=== PATIENT | male | born 1950 | race Caucasian/White ===

== ENCOUNTER 2021-07-21 02:17 | Day surgery (SDC) | payer OTHER, SELFPAY ==
[2021-07-08 16:12] VITALS: BMI 26.9
[2021-07-21 07:27] VITALS: BP 136/80; PULSE 65; RESP 15; TEMP 36.4; O2SAT 98
[2021-07-21 07:31] LABS: Glucose Point of Care 80 mg/dl (65-105)
[2021-07-21] MEDS: LACTATED RINGERS 1,000 ML 150 ML IV CONT (07:37)
--- NOTE | 2021-07-21 07:43 | P.CONGI_ITS ---
Assessment and Plan Assessment and plan (1) History of colon polyps: Code(s): Z86.010 - Personal history of colonic polyps Status: Acute Assessment and Plan: Patient has a personal history of colon polyps 2019 as well as family history of colon cancer in his mother. Plan is for surveillance colonoscopy now and intervals in the future typically 5 year intervals. Further recommendations will be given after endoscopy. (2) Family history of colon cancer in mother: Code(s): Z80.0 - Family history of malignant neoplasm of digestive organs Status: Acute GI Consult Note Consult date/time: 07/21/21 07:43 HPI: Sharan De Luna is a 70 year old male Presents for screening colonoscopy. Patient was found to have several colon polyps in 2019 that were adenomatous. Patient reports that his current weight appetite and bowel movements are normal. He denies abdominal pain. He has had no bleeding. Family history is significant his mother had colon cancer. Patient returns today for neoplasia screening colonoscopy. Review of Systems Review of Systems: All systems reviewed & are unremarkable except as noted in HPI and below PMFSH Social History Social History Years smoked: 40 Smoking status: Former smoker Living arrangements: alone Meds Home Medications and Allergies Home Medications Medication Instructions Recorded Confirmed Type atorvastatin 10 mg PO HS 07/08/21 07/21/21 History finasteride 5 mg PO DAILY 07/08/21 07/21/21 History lisinopril 2.5 mg PO DAILY 07/08/21 07/21/21 History metformin 500 mg PO DAILY 07/08/21 07/21/21 History Allergies Allergy/AdvReac Type Severity Reaction Status Date / Time No Known Allergies Allergy Verified 07/21/21 07:26 Vital Signs Vital Signs - 24 hr 07/21/21 07:27 Temperature 97.6 F Pulse Rate 65 Respiratory Rate 15 Blood Pressure 136/80 Pulse Oximetry 98 Exam Narrative: Physical exam reveals patient to be alert. Vital signs stable. HEENT exam is unremarkable. Patient is anicteric. Lungs are clear to auscultation and percussion. Heart is without murmur or extra sounds. Abdomi nal exam bowel sounds are present soft nontender with no organomegaly. Digital external rectal exam is normal.
--- NOTE | 2021-07-21 07:47 | WPDANESEPPF ---
Anes - Initial Pre Proc Eval Procedure: Operation Date: 07/21/21 08:30 Proposed Procedures p Screening Colonoscopy - Ayden Medina MD Date/Time: 07/21/21 07:47 Surgeon: Ayden Medina MD Pre Op Diagnosis: hx of colon polyps Patient Data Age: 70 Gender: M Height: 1.83 m Weight: 86.9 kg Last Vital Signs Temp 36.4 C 07/21/21 07:27 Pulse 65 07/21/21 07:27 Resp 15 07/21/21 07:27 BP 136/80 07/21/21 07:27 Pulse Ox 98 07/21/21 07:27 Allergies Allergy/AdvReac Type Severity Reaction Status Date / Time No Known Allergies Allergy Verified 07/21/21 07:26 Home Medications Medication Instructions Recorded Confirmed Type atorvastatin 10 mg PO HS 07/08/21 07/21/21 History finasteride 5 mg PO DAILY 07/08/21 07/21/21 History lisinopril 2.5 mg PO DAILY 07/08/21 07/21/21 History metformin 500 mg PO DAILY 07/08/21 07/21/21 History Laboratory Tests 07/21/21 07:30 POC Capillary Glucose 80 mg/dl mg/dl (65-105) Patient hx anesthesia problems: none Family hx anesthesia problems: none Results Review: All pre-operative results and documents have been reviewed as part of the pre-operative evaluation. [facility] Past Medical History Medical History Diabetes HTN (hypertension) Hyperlipidemia Smoker Surgical History Surgical History (Updated 07/21/21 @ 07:48 by Braeden Epstein MD) H/O colonoscopy Social History Social History (Updated 07/21/21 @ 07:49 by Braeden Epstein MD) Years smoked: 40 Smoking status: Current some day smoker Living arrangements: alone Anes - Eval Final PreProcedure Day of Procedure 07/21/21 07:47 Patient weight: overweight Heart: regular rate and rhythm Lungs: clear to auscultation Airway: Mallampati scale class II Neurological: alert and oriented Last oral intake: >/= 8 hours ASA classification: III Emergent: no Anesthetic plan: proceed Anesthesia type and monitoring: general GIVS and standard monitoring Results Review: All pre-operative results and documents have been reviewed as part of the pre-operative evaluation. Informed Consent: The patient's anesthetic plan and its attendant risks and benefits were discussed with the patient/family/POA. Questions were solicited and answers provided to the satisfaction of the patient/family/POA.
[2021-07-21 08:40] VITALS: BP 90/52; PULSE 59; RESP 13; O2SAT 98
[2021-07-21 08:50] VITALS: BP 105/63; PULSE 62; RESP 14; O2SAT 99
[2021-07-21 09:00] VITALS: BP 118/69; PULSE 59; RESP 14; O2SAT 96
== END 2021-07-21 09:10 | disposition home or self-care (01) ==
PROVIDERS: PCP Family Medicine; Visit Provider Internal Medicine Gastroenterology
PROC: 0DJD8ZZ Inspection of Lower Intestinal Tract, Via Natural or Artificial Opening Endoscopic (ICD-10-PCS; CPT 45378; principal; 2021-07-21 08:30)
DX: Z12.11 Encounter for screening for malignant neoplasm of colon (principal); K63.5 Polyp of colon; K57.30 Diverticulosis of large intestine without perforation or abscess without bleeding; K64.8 Other hemorrhoids; Z80.0 Family history of malignant neoplasm of digestive organs; Z79.84 Long term (current) use of oral hypoglycemic drugs; Z72.0 Tobacco use
CPT/HCPCS: 45385; 82948; 88305; J2704; J7120

== ENCOUNTER 2024-10-21 01:56 | Day surgery (SDC) | payer OTHER, SELFPAY ==
[2024-10-06 13:31] VITALS: BMI 24.5
--- OUTSIDE RECORDS SUMMARY | 2024-10-21 01:59 | XMS_ITS | Referral Summary ---
Author Organization [facility] [address] [facility] Address [address] [place] [address] Care Team Providers Care Art Tracer Name Role Phone Tanisha Isaac Primary Care Provider [phone] Allergies No known active allergies Medications finasteride (PROSCAR) 5 mg tablet Take 1 tablet (5 mg total) by mouth daily 0 Active cyanocobalamin (Vitamin B-12) 500 mcg tabletIndications: Prevention of Vitamin B12 Deficiency Take 1 tablet (500 mcg total) by mouth daily Active nexgrqzm-vjy-GQ-ly copen-lutein 0.4 mg-300 mcg- 250 mcg tabletIndications: Vitamin Deficiency Prevention 1 tablet Active blood-glucose meter kitIndications:Typ e 2 diabetes mellitus with hyperlipidemia (HCC) Use blood glucose meter to check blood sugar once daily. [facility] [employer] [employer]. 1 kit 5 Active blood glucose diagnostic (glucose blood) stripIndications:T ype 2 diabetes mellitus with hyperlipidemia (HCC) Use test strip to check blood sugar once daily. [facility] [employer]. 100 each 3 5 026 Active lancets miscIndications:Ty pe 2 diabetes mellitus with hyperlipidemia (HCC) Use lancet to check blood sugar once daily. [facility] [employer]. 100 each 3 5 Active atorvastatin (LIPITOR) 10 mg tabletIndications: Type 2 diabetes mellitus with hyperlipidemia (HCC) TAKE 1 TABLET BY MOUTH EVERY DAY 90 tablet 1 5 Active lisinopriL (PRINIVIL,ZESTRIL) 2.5 mg tabletIndications: Hypertension associated with diabetes (HCC) TAKE 1 TABLET BY MOUTH EVERY DAY 90 tablet 1 Active Active Problems Problem Noted Date Diagnosed Date Annual physical exam 06/15/2024 Assessment & Plan (06/15/2024 9:17 PM WEDDING COORDINATOR): Encouraged healthy lifestyle, good nutrition and exercise. Encouraged Calcium and Vitamin D and weight bearing exercise for bone health. Reviewed immunizations Reviewed age appropirate screenings. Colon cancer screening 06/15/2024 Assessment & Plan (06/15/2024 9:18 PM WEDDING COORDINATOR): Patient is due for colonoscopy. Refer back to [facility] Elevated MCV 12/04/2023 Assessment & Plan (12/09/2023 2:29 AM CDT): Elevated MCV. Check further labs BMI 28.0-28.9,adult 11/28/2022 Assessment & Plan (06/04/2024 9:52 AM WEDDING COORDINATOR): Weight/BMI is in healthy range. Continue healthy lifestyle to maintain. Assessment & Plan (12/09/2023 2:29 AM CDT): Weight/BMI is in healthy range. Continue healthy lifestyle to maintain. Assessment & Plan (07/15/2023 11:29 PM CDT): Weight/BMI is in healthy range. Continue healthy lifestyle to maintain. Assessment & Plan (11/28/2022 9:03 AM CDT): Weight/BMI is in healthy range. Continue healthy lifestyle to maintain. Family history of colon cancer 07/11/2020 Overview (07/11/2020): Mother and brother Assessment & Plan (11/28/2020 1:02 PM CDT): colonscopy - [facility] 06/2018--->2021 Assessment & Plan (07/11/2020 1:45 PM WEDDING COORDINATOR): Colonoscopy Due 07/2021 Hypertension associated with diabetes 05/20/2020 Assessment & Plan (06/15/2024 9:18 PM WEDDING COORDINATOR): Bp is stable/in acceptable range for any co-morbidities. Encouraged to limit sodium intake and exercise for weight control. Stressed importance of continued A1c control to minimize the joint terminal attack controller effects of diabetes. Bring accuchecks to office when instructed to do so. Check A1c about every 3-6 months. Take medication as prescribed. Get annual eye exam. Encouraged EDWARD/Statin if able to tolerate. Encouraged weight control and encouraged diabetic diet and exercise. Continue lisinopril 2.5 diabetes continues to be diet controlled Patient states his insurance has changed the preferred glucometer. New set up provided Assessment & Plan (12/09/2023 2:28 AM CDT): Bp is stable/in acceptable range for any co-morbidities. Encouraged to limit sodium intake and exercise for weight control. Stressed importance of continued A1c control to minimize the joint terminal attack controller effects of diabetes. Bring accuchecks to office when instructed to do so. Check A1c about every 3-6 months. Take medication as prescribed. Get annual eye exam. Encouraged EDWARD/Statin if able to tolerate. Encouraged weight control and encouraged diabetic diet and exercise. Continue lisinopril 2.5 and continue with tight diet control of his diabetes Assessment & Plan (07/15/2023 11:28 PM CDT): Bp is stable/in acceptable range for any co-morbidities. Encouraged to limit sodium intake and exercise for weight control. Continue lisinopril 2.5 Assessment & Plan (11/28/2022 11:58 AM CDT): Bp is stable/in acceptable range for any co-morbidities. Encouraged to limit sodium intake and exercise for weight control. Patient's A1c is 5.4. On metformin 500 mg daily. A1c is very tightly controlled discussed the risks and benefits of remaining on medication with this tight control. Decided to stop it. Follow-up in 4 months to recheck A1c for stability Assessment & Plan (06/03/2022 9:22 PM WEDDING COORDINATOR): Bp is stable/in acceptable range for any co-morbidities. Encouraged to limit sodium intake and exercise for weight control. Continue lisinopril 2.5 Assessment & Plan (12/04/2021 11:41 PM CDT): Bp is stable/in acceptable range for any co-morbidities. Encouraged to limit sodium intake and exercise for weight control. Continue with lisinopril Assessment & Plan (07/10/2021 10:01 PM WEDDING COORDINATOR): Bp is stable/in acceptable range for any co-morbidities. Encouraged to limit sodium intake and exercise for weight control. Continue lisinopril Assessment & Plan (11/28/2020 1:01 PM CDT): Bp is stable/in acceptable range for any co-morbidities. Encouraged to limit sodium intake and exercise for weight control. Continue lisinopril Assessment & Plan (07/11/2020 1:44 PM WEDDING COORDINATOR): Bp is stable/in acceptable range for any co-morbidities. Encouraged to limit sodium intake and exercise for weight control. Continue lisinopril Type 2 diabetes mellitus with hyperlipidemia Assessment & Plan (06/15/2024 9:17 PM WEDDING COORDINATOR): Encouraged patient to follow low fat/low chol diet like the Mediterranean diet. Increase good fats in the diet. Increase exercise. Monitor labs as needed. Continue atorvastatin 10 Assessment & Plan (12/09/2023 2:28 AM CDT): Encouraged patient to follow low fat/low chol diet like the Mediterranean diet. Increase good fats in the diet. Increase exercise. Monitor labs as needed. Continue atorvastatin 10 Assessment & Plan (07/15/2023 11:29 PM CDT): Stressed importance of continued A1c control to minimize the group home effects of diabetes. Bring accuchecks to office when instructed to do so. Check A1c about every 3-6 months. Take medication as prescribed. Get annual eye exam. Encouraged EDWARD/Statin if able to tolerate. Encouraged weight control and encouraged diabetic diet and exercise. Encouraged patient to follow low fat/low chol diet like the Mediterranean diet. Increase good fats in the diet. Increase exercise. Monitor labs as needed. Assessment & Plan (11/28/2022 11:58 AM CDT): Encouraged patient to follow low fat/low chol diet like the Mediterranean diet. Increase good fats in the diet. Increase exercise. Monitor labs as needed. Continue atorvastatin 10 Assessment & Plan (06/03/2022 9:23 PM WEDDING COORDINATOR): Encouraged patient to follow low fat/low chol diet like the Mediterranean diet. Increase good fats in the diet. Increase exercise. Monitor labs as needed. Continue statin Stressed importance of continued A1c control to minimize the group home effects of diabetes. Bring accuchecks to office when instructed to do so. Check A1c about every 3-6 months. Take medication as prescribed. Get annual eye exam. Encouraged EDWARD/Statin if able to tolerate. Encouraged weight control and encouraged diabetic diet and exercise. Continue metformin 500 daily. Last A1c is at goal. Continue to keep track labs Assessment & Plan (12/04/2021 11:41 PM CDT): Encouraged patient to follow low fat/low chol diet like the Mediterranean diet. Increase good fats in the diet. Increase exercise. Monitor labs as needed. Continue Lipitor 10 mg Assessment & Plan (07/10/2021 10:01 PM WEDDING COORDINATOR): Encouraged patient to follow fat/low chol diet like the Mediterranean diet. Increase good fats in the diet. Increase exercise. Monitor labs as needed. Continue statin Assessment & Plan (11/28/2020 1:01 PM CDT): Encouraged patient to follow fat/low chol diet like the Mediterranean diet. Increase good fats in the diet. Increase exercise. Monitor labs as needed. Continue atorvastatin Assessment & Plan (07/11/2020 1:45 PM WEDDING COORDINATOR): Encouraged patient to follow fat/low chol diet like the Mediterranean diet. Increase good fats in the diet. Increase exercise. Monitor labs as needed. Continue statin Benign prostatic hyperplasia without lower urinary tract symptoms 05/20/2020 Assessment & Plan (06/15/2024 9:17 PM WEDDING COORDINATOR): Continue per Dr. Ayala Continue finasteride 5 mg Assessment & Plan (12/09/2023 2:29 AM CDT): Continue per Dr. Mcqueen annually Continue finasteride. Assessment & Plan (07/15/2023 11:28 PM CDT): Continue per Urology Dr. Hector. Doing well on finasteride Assessment & Plan (11/28/2022 11:58 AM CDT): Continue per Urology Dr. Hector. Continue finasteride 5 mg Assessment & Plan (06/03/2022 9:22 PM WEDDING COORDINATOR): Continue per Urology. On finasteride 5 mg Assessment & Plan (07/10/2021 10:01 PM WEDDING COORDINATOR): Continue per Dr. Mcqueen, urologist continue finasteride 5 mg Assessment & Plan (07/11/2020 1:45 PM WEDDING COORDINATOR): Continue finasteride and following with Dr. 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 Chowdhury 10. Has the macular degeneration and states it is stable at this point Assessment & Plan (12/09/2023 2:28 AM CDT): Continue per Dr. Garcia for management of his macular degeneration Assessment & Plan (11/28/2022 11:58 AM CDT): Stressed the importance of following up with Ophthalmology Dr. Garcia. Last exam was in 2020. Discussed macular degeneration in the progression of the disease and the importance of regular follow-up. Assessment & Plan (06/03/2022 9:22 PM WEDDING COORDINATOR): Continue per Ophthalmology Dr. Garcia. Assessment & Plan (07/10/2021 10:01 PM WEDDING COORDINATOR): Continue per Dr. Garcia ophthalmology Assessment & Plan (11/28/2020 1:02 PM CDT): Continue per Opthamology Assessment & Plan (07/11/2020 1:44 PM WEDDING COORDINATOR): Continue per Ophthamology History of colon polyps 05/20/2020 Assessment & Plan (11/28/2020 1:02 PM CDT): colonscopy - [facility] 06/2018--->2021 Assessment & Plan (07/11/2020 1:45 PM WEDDING COORDINATOR): Colonoscopy due 07/2021 OA (osteoarthritis) 05/20/2020 Assessment & Plan (11/28/2020 1:03 PM CDT): NSAID prn Assessment & Plan (07/11/2020 1:45 PM WEDDING COORDINATOR): Continue with Nsaids prn Diverticulosis 05/20/2020 Resolved Problems Problem Noted Date Diagnosed Date Resolved Date Medicare annual wellness visit, subsequent 12/09/2023 06/15/2024 Assessment & Plan (12/09/2023 2:29 AM CDT): Encouraged healthy lifestyle, good nutrition and exercise. Encouraged Calcium and Vitamin D and weight bearing exercise for bone health. Reviewed immunizations. Reviewed age appropirate screenings. Medicare Wellness Documentation is completed within the chart Annual physical exam 07/15/2023 024 Assessment & Plan (07/15/2023 11:30 PM CDT): Encouraged healthy lifestyle, good nutrition and exercise. Encouraged Calcium and Vitamin D and weight bearing exercise for bone health. Reviewed immunizations Reviewed age appropirate screenings. Medicare annual wellness visit, subsequent 11/28/2022 07/15/2023 Assessment & Plan (11/28/2022 11:59 AM CDT): Encouraged healthy lifestyle, good nutrition and exercise. Encouraged Calcium and Vitamin D and weight bearing exercise for bone health. Reviewed immunizations. Reviewed age appropirate screenings. Medicare Wellness Documentation is completed within the chart Medicare annual wellness visit, subsequent 12/04/2021 05/23/2022 Assessment & Plan (12/04/2021 11:42 PM CDT): Encouraged healthy lifestyle, good nutrition and exercise. Encouraged Calcium and Vitamin D and weight bearing exercise for bone health. Reviewed immunizations. Reviewed age appropirate screenings. Medicare Wellness Documentation is completed within the chart Need for shingles vaccine 12/04/2021 Assessment & Plan (12/04/2021 11:42 PM CDT): Shingles vaccine updated in office today BMI 27.0-27.9,adult 06/21/2021 12/05/19 22 Assessment & Plan (06/21/2021 9:35 AM WEDDING COORDINATOR): Weight/BMI is in healthy range. Continue healthy lifestyle to maintain. Annual physical exam 06/21/2021 023 Assessment & Plan (06/03/2022 9:23 PM WEDDING COORDINATOR): Encouraged healthy lifestyle, good nutrition and exercise. Encouraged Calcium and Vitamin D and weight bearing exercise for bone health. Reviewed immunizations Reviewed age appropirate screenings. Assessment & Plan (07/10/2021 10:02 PM WEDDING COORDINATOR): Encouraged healthy lifestyle, good nutrition and exercise. Encouraged Calcium and Vitamin D and weight bearing exercise for bone health. Reviewed immunizations Reviewed age appropirate screenings. Need for vaccination with 13 -polyvalent pneumococcal conjugate vaccine 06/21/2021 Assessment & Plan (07/10/2021 10:02 PM WEDDING COORDINATOR): Thirteen updated in the office today Colon cancer screening 06/21/202105/23 Assessment & Plan (12/04/2021 11:42 PM CDT): Patient is due for follow-up colonoscopy. Last was in [address] Medina. He has a family history of colon cancer so due to repeat in 2021. Instructed patient he may call Dr. Medina's office inset the appointment is his convenience Assessment & Plan (07/10/2021 10:02 PM WEDDING COORDINATOR): Refer back to Dr. santacruz for is colonoscopy Fatigue 11/28/2020 11/28/2022 Assessment & Plan (06/03/2022 9:23 PM WEDDING COORDINATOR): Probably multifactorial. Check labs and followup to re-evaluate Assessment & Plan (07/10/2021 10:02 PM WEDDING COORDINATOR): Probably multifactorial. Check labs and followup to re-evaluate Assessment & Plan (11/28/2020 1:03 PM CDT): Probably multifactorial. Check labs and followup to re-evaluate Medicare annual wellness visit, initial 11/22/2020 06/21/2021 Assessment & Plan (11/22/2020 7:47 AM CDT): Encouraged healthy lifestyle, good nutrition and exercise. Encouraged Calcium and Vitamin D and weight bearing exercise for bone health. Reviewed immunizations. Reviewed age appropirate screenings. Medicare Wellness Documentation is completed within the chart BMI 26.0-26.9,adult 11/22/2020 11/29/19 Assessment & Plan (06/03/2022 9:22 PM WEDDING COORDINATOR): Weight/BMI is in healthy range. Continue healthy lifestyle to maintain. Assessment & Plan (12/04/2021 11:41 PM CDT): Weight/BMI is in healthy range. Continue healthy lifestyle to maintain. Assessment & Plan (11/22/2020 10:49 AM CDT): Weight/BMI is in healthy range. Continue healthy lifestyle to maintain. BMI 27.0-27.9,adult 05/20/2020 11/23/19 Assessment & Plan (05/20/2020 10:19 AM WEDDING COORDINATOR): Weight/BMI is in healthy range. Continue healthy lifestyle to maintain. Annual physical exam 05/20/2020 021 Assessment & Plan (07/11/2020 1:45 PM WEDDING COORDINATOR): Encouraged healthy lifestyle, good nutrition and exercise. Encouraged Calcium and Vitamin D and weight bearing exercise for bone health. Reviewed immunizations Reviewed age appropirate screenings. Other fatigue 05/20/2020 12/09/2023 Assessment & Plan (07/15/2023 11:29 PM CDT): Probably multifactorial. Check labs and followup to re-evaluate Assessment & Plan (07/11/2020 1:45 PM WEDDING COORDINATOR): Probably multifactorial. Check labs and followup to re-evaluate Immunizations Immunization Administration Dates Next Due Hep A, Adult 09/19/1999,03/08/1999 Influenza, Quadrivalent, Hig h Dose, Preservative Free, Intrr 03/08/2023,02/07/2022,02/10/2021 Influenza, Trivalent, High D ose, Split, Preservative Free, Intramuscular 02/11/2024 Influenza, Unspecified 06/07/2022(Deferr ed: Patient Refused),06/07/2021(Deferred: Patient Refused),05/07/2021(Deferred: Patient Refused),03/08/2020 Pfizer SARS-CoV-2 Monovalent Vaccination (12+ Yrs) PURPLE 04/23/2021 Pneumococcal Conjugate PCV 13 06/21/2021 Pneumococcal Polysaccharide PPV23 03/08/2020 Td, adsorbed 11/23/1993 ZOSTER Recombinant 11/24/2021,11/24/2020 Social History Tobacco Use Types Packs/Day Years Used Date Smoking Tobacco: Never Smokeless Tobacco: Never Tobacco Cessation:Counseling Given: Not Answered Alcohol Use Standard Drinks/Week Comments Yes 0 (1 standard drink = 0.6 oz pur e alcohol) Socially AUDIT-C Answer Date Recorded Q1: How often do you have a drink containing alcohol? Never 06/04/2024 Q2: How many drinks containi ng alcohol do you have on a typical day when you are drinking? Patient does not drink Q3: How often do you have si x or more drinks on one occasion? Never 06/04/2024 PHQ-2 Answer Date Recorded PHQ-2 Total Score (If total score is 3 or more points, staff should administer the PHQ-9) 0 06/04/2024 Sex and Gender Information Value Date Recorded Sex Assigned at Not on file Legal Sex Male 12:01 PM WEDDING COORDINATOR Gender Identity Not on file Sexual Orientation Not on file Last Filed Vital Signs Vital Sign Reading Time Taken Comments Blood Pressure 130/82 06/04/2024 9:50 AM WEDDING COORDINATOR Pulse 55 06/04/2024 9:50 AM WEDDING COORDINATOR Temperature 36.7 C (98 F) 06/04/2024 9:50 AM WEDDING COORDINATOR Respiratory Rate 16 05/24/2022 9:04 AM WEDDING COORDINATOR Oxygen Saturation 99% 06/04/2024 9:50 AM WEDDING COORDINATOR Inhaled Oxygen Concentration - - Weight 86.9 kg (191 lb 9.6 oz) 06/04/2024 9:50 A M WEDDING COORDINATOR Height 175.3 cm (5' 9) 06/04/2024 9:50 AM WEDDING COORDINATOR Body Mass Index 28.29 06/04/2024 9:50 AM WEDDING COORDINATOR Plan of Treatment Not on file Procedures Procedure Name Priority Date/Time Associated Diagnosis Comments COMPREHENSIVE METABOLIC PANEL Routine 05/19/2024 7:18 AM WEDDING COORDINATOR Type 2 diabetes mellitus without complication, without long-term current use of insulin (HCC) HEMOGLOBIN A1C Routine 05/19/2024 7:18 AM WEDDING COORDINATOR Type 2 diabetes mellitus without complication, without long-term current use of insulin (HCC) LIPID PANEL Routine 05/19/2024 7:18 AM WEDDING COORDINATOR Type 2 diabetes mellitus without complication, without long-term current use of insulin (HCC) ALBUMIN CREATININE RATIO, URINE Routine 05/19/2024 7:18 AM WEDDING COORDINATOR Type 2 diabetes mellitus without complication, without long-term current use of insulin (HCC) DIABETES EYE EXAM Routine 02/29/2024 11:27 AM CDT COLONOSCOPY Routine 07/21/2021 from Last 3 Months or Most Recently Relevant to Health Maintenance Results * Albumin Creatinine Ratio, Urine (05/19/2024 7:18 AM WEDDING COORDINATOR) Creatinine, ur 93 20 - 320 mg/dL [facility] Microalbumin, ur 0.6 See Note: mg/dL [facility] Comment: Reference Range: Reference Range Not established Microalbumin/creat ratio 6 <30 mg/g creat [facility] Comment: The ADA defines abnormalities in albumin excretion as follows: Albuminuria Category Result (mg/g creatinine) Normal to Mildly increased <30 Moderately increased 30-299 Severely increased > OR = 300 The ADA recommends that at least two of three specimens collected within a 3-6 month period be abnormal before considering a patient to be within a diagnostic category. Urine 05/19/2024 7:18 AM WEDDING COORDINATOR 05/19/2024 7:20 AM WEDDING COORDINATOR Narrative [facility] - 05/20/2024 5:42 AM WEDDING COORDINATOR FASTING:YES FASTING: YES Tanisha ANDRADE LAB URINE ORDERABLES Final Result [facility] [address] [place] [address] * (ABNORMAL) Hemoglobin A1c (05/19/2024 7:18 AM WEDDING COORDINATOR) Hgb A1C 6.0(H) <5.7 % of total Hgb [facility] Comment: For someone without known diabetes, a hemoglobin A1c value between 5.7% and 6.4% is consistent with prediabetes and should be confirmed with a follow-up test. For someone with known diabetes, a value <7% indicates that their diabetes is well controlled. A1c targets should be individualized based on duration of diabetes, age, comorbid conditions, and other considerations. This assay result is consistent with an increased risk of diabetes. Currently, no consensus exists regarding use of hemoglobin A1c for diagnosis of diabetes for children. Blood 05/19/2024 7:18 AM WEDDING COORDINATOR 05/19/2024 7:20 AM WEDDING COORDINATOR Narrative [facility] - 05/20/2024 5:42 AM WEDDING COORDINATOR FASTING:YES FASTING: YES Tanisha ANDRADE LAB BLOOD ORDERABLES Final Result [facility] [address] [place] [address] * Lipid panel (05/19/2024 7:18 AM WEDDING COORDINATOR) [facility] Cholesterol 165 <200 mg/dL [facility] HDL 50 > OR = 40 mg/dL [facility] Triglycerides 103 <150 mg/dL [facility] LDL 95 mg/dL (calc) [facility] Comment: Reference range: <100 Desirable range <100 mg/dL for primary prevention; <70 mg/dL for patients with CHD or diabetic patients with > or = 2 CHD risk factors. LDL-C is now calculated using the Stuart-Campbell calculation, which is a validated novel method providing better accuracy than the Friedewald equation in the estimation of LDL-C. Stuart VALDES et al. HERB. 2013;310(19): 6390-9109 (http://education.[employer]/faq/YJT929) Chol/HDL ratio 3.3 <5.0 (calc) [facility] Non-HDL, (LDL+VLDL) 115 <130 mg/dL (calc) [facility] Comment: For patients with diabetes plus 1 major ASCVD risk factor, treating to a non-HDL-C goal of <100 mg/dL (LDL-C of <70 mg/dL) is considered a therapeutic option. Blood 05/19/2024 7:18 AM WEDDING COORDINATOR 05/19/2024 7:20 AM WEDDING COORDINATOR Narrative [facility] - 05/20/2024 5:42 AM WEDDING COORDINATOR FASTING:YES FASTING: YES Tanisha ANDRADE LAB BLOOD ORDERABLES Final Result [facility] [address] [place] [address] * Comprehensive metabolic panel (05/19/2024 7:18 AM WEDDING COORDINATOR) [facility] Glucose 87 65 - 99 mg/dL [facility] Comment: Fasting reference interval BUN 16 7 - 25 mg/dL [facility] Creatinine 0.88 0.70 - 1.28 mg/dL [facility] eGFR 91 > OR = 60 mL/min/1.7 3m2 [facility] BUN/creat ratio SEE NOTE: 6 - 22 (calc) [facility] Comment: Not Reported: BUN and Creatinine are within reference range. Sodium 140 135 - 146 mmol/L [facility] Potassium, pl 4.6 3.5 - 5.3 mmol/L [facility] Chloride 105 98 - 110 mmol/L [facility] CO2 28 20 - 32 mmol/L [facility] Calcium 9.4 8.6 - 10.3 mg/dL [facility] Protein, sr 7.2 6.1 - 8.1 g/dL [facility] Albumin 4.6 3.6 - 5.1 g/dL [facility] GLOBULIN 2.6 1.9 - 3.7 g/dL (calc) [facility] Alb/glob ratio 1.8 1.0 - 2.5 (calc) [facility] Bilirubin, total 0.5 0.2 - 1.2 mg/dL [facility] Alk phos 48 35 - 144 U/L [facility] AST 25 10 - 35 U/L [facility] ALT (SGPT) 14 9 - 46 U/L [facility] Blood 05/19/2024 7:18 AM WEDDING COORDINATOR 05/19/2024 7:20 AM WEDDING COORDINATOR Narrative [facility] - 05/20/2024 5:42 AM WEDDING COORDINATOR FASTING:YES FASTING: YES Tanisha ANDRADE LAB BLOOD ORDERABLES Final Result [facility] [address] [place] [address] * DIABETES EYE EXAM (02/29/2024 11:27 AM CDT) SCRIBED DIABETIC DILATED EYE EXAM Normal Historical Provider MD HEALTH MAINTENANCE Edited Result - Final * Colonoscopy (07/21/2021) Anatomical Region Laterality Modality Other Historical Provider ENDOSCOPY PROCEDURES Michelle l Result from Last 3 Months or Most Recently Relevant to Health Maintenance Insurance HEALTHCARE Member Subscriber Plan / Payer (Ef fective 2017-Present) Name:Sharan De Luna Relation to Subscriber:Self Name:Sharan De Luna Payer ID:[id number] (NAIC) Type:MEDICARE RISK OTHER Address: [place] [id number] Care Teams Art Tracer Relationship Specialty Start Date End Date Tanisha Isaac PA [address] [facility] [address] [place] [address] PCP - General Internal Medicine 04/06/20
--- OUTSIDE RECORDS SUMMARY | 2024-10-21 01:59 | XMS_ITS | Continuity of Care Document ---
Author Organization [facility] Address [address] [place] [address] [place] [address] Phone Care Team Providers Care Energy Administrator Name Role Phone Tay Jensen DO Unavailable Unavailable Advance Directives Directive Yes / No Effective Date File Name No Information Encounters Encounter Description Practice Location Reason(s) For Visit Diagnoses Date Provider Providers Copied on Encounter [facility], [address], [place], [place], [id number], [place] tel:[phone] [facility] No Information Mikey Boone. [address] [facility], [place], [address], [place]. tel:[phone] Family History Family Member Type Diagnosis Age At Onset No Information Payers Payer name Insurance type Covered constitution party ID Authoriza tion(s) No Information Social History Type Description Quantity Date Captured Comments Sex Male Smoking Status No Information Chief Complaint And Reason For Visit No Information Reason For Referral Reason For Referral No Information History Of Present Illness Encounter Date Complaint History Of Prese nt Illness No Information Functional Status Date Functional Assessmen t No Information Instructions Date Instruction Additional Infor mation No Information Assessments Type Assessment Date No Information Patient Care Teams Name Effective Dates (start - stop) Status Members No Information
--- OUTSIDE RECORDS SUMMARY | 2024-10-21 01:59 | XMS_ITS | Clinical Summary ---
Author Organization [facility] [address] [facility] Address [address] [place] [address] Care Team Providers Care Finance Officer Name Role Phone Tanisha Isaac Primary Care Provider [phone] Allergies No known active allergies Medications finasteride (PROSCAR) 5 mg tablet Take 1 tablet (5 mg total) by mouth daily 0 Active cyanocobalamin (Vitamin B-12) 500 mcg tabletIndications: Prevention of Vitamin B12 Deficiency Take 1 tablet (500 mcg total) by mouth daily Active smsswzhm-avh-XD-ly copen-lutein 0.4 mg-300 mcg- 250 mcg tabletIndications: [...] 06/15/2024 Assessment & Plan (06/15/2024 9:17 PM POKER SUPERVISOR): Encouraged healthy lifestyle, good nutrition and exercise. Encouraged Calcium and Vitamin D and weight bearing exercise for bone health. Reviewed immunizations Reviewed age appropirate screenings. Colon cancer screening 06/15/2024 Assessment & Plan (06/15/2024 9:18 PM POKER SUPERVISOR): Patient is due for colonoscopy. Refer back to [facility] Elevated MCV 12/04/2023 Assessment & Plan (12/09/2023 2:29 AM CDT): Elevated MCV. Check further labs BMI 28.0-28.9,adult 11/28/2022 Assessment & Plan (06/04/2024 9:52 AM POKER SUPERVISOR): Weight/BMI is in healthy range. Continue healthy [...] 06/2018--->2021 Assessment & Plan (07/11/2020 1:45 PM POKER SUPERVISOR): Colonoscopy Due 07/2021 Hypertension associated with diabetes 05/20/2020 Assessment & Plan (06/15/2024 9:18 PM POKER SUPERVISOR): Bp is stable/in acceptable range for any co-morbidities. Encouraged to limit sodium intake and exercise for weight control. Stressed importance of continued A1c control to minimize the watermelon harvesting supervisor effects of diabetes. Bring accuchecks to office [...] of continued A1c control to minimize the watermelon harvesting supervisor effects of diabetes. Bring accuchecks to office [...] stability Assessment & Plan (06/03/2022 9:22 PM POKER SUPERVISOR): Bp is stable/in acceptable range for any co-morbidities. Encouraged to limit sodium intake and exercise for weight control. Continue lisinopril 2.5 Assessment & Plan (12/04/2021 11:41 PM CDT): Bp is stable/in acceptable range for any co-morbidities. Encouraged to limit sodium intake and exercise for weight control. Continue with lisinopril Assessment & Plan (07/10/2021 10:01 PM POKER SUPERVISOR): Bp is stable/in acceptable range for any co-morbidities. Encouraged to limit sodium intake and exercise for weight control. Continue lisinopril Assessment & Plan (11/28/2020 1:01 PM CDT): Bp is stable/in acceptable range for any co-morbidities. Encouraged to limit sodium intake and exercise for weight control. Continue lisinopril Assessment & Plan (07/11/2020 1:44 PM POKER SUPERVISOR): Bp is stable/in acceptable range for any co-morbidities. Encouraged to limit sodium intake and exercise for weight control. Continue lisinopril Type 2 diabetes mellitus with hyperlipidemia Assessment & Plan (06/15/2024 9:17 PM POKER SUPERVISOR): Encouraged patient to follow low fat/low chol [...] of continued A1c control to minimize the fpc effects of diabetes. Bring accuchecks to office [...] 10 Assessment & Plan (06/03/2022 9:23 PM POKER SUPERVISOR): Encouraged patient to follow low fat/low chol diet like the Mediterranean diet. Increase good fats in the diet. Increase exercise. Monitor labs as needed. Continue statin Stressed importance of continued A1c control to minimize the fpc effects of diabetes. Bring accuchecks to office [...] mg Assessment & Plan (07/10/2021 10:01 PM POKER SUPERVISOR): Encouraged patient to follow fat/low chol diet like the Mediterranean diet. Increase good fats in the diet. Increase exercise. Monitor labs as needed. Continue statin Assessment & Plan (11/28/2020 1:01 PM CDT): Encouraged patient to follow fat/low chol diet like the Mediterranean diet. Increase good fats in the diet. Increase exercise. Monitor labs as needed. Continue atorvastatin Assessment & Plan (07/11/2020 1:45 PM POKER SUPERVISOR): Encouraged patient to follow fat/low chol diet like the Mediterranean diet. Increase good fats in the diet. Increase exercise. Monitor labs as needed. Continue statin Benign prostatic hyperplasia without lower urinary tract symptoms 05/20/2020 Assessment & Plan (06/15/2024 9:17 PM POKER SUPERVISOR): Continue per Dr. Ayala Continue finasteride 5 mg Assessment & Plan (12/09/2023 2:29 AM CDT): Continue per Dr. Mcqueen annually Continue finasteride. Assessment & Plan (07/15/2023 11:28 PM CDT): Continue per Urology Dr. Hector. Doing well on finasteride Assessment & Plan (11/28/2022 11:58 AM CDT): Continue per Urology Dr. Hector. Continue finasteride 5 mg Assessment & Plan (06/03/2022 9:22 PM POKER SUPERVISOR): Continue per Urology. On finasteride 5 mg Assessment & Plan (07/10/2021 10:01 PM POKER SUPERVISOR): Continue per Dr. Mcqueen, urologist continue finasteride 5 mg Assessment & Plan (07/11/2020 1:45 PM POKER SUPERVISOR): Continue finasteride and following with Dr. 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 Chowdhury 10. Has the [...] follow-up. Assessment & Plan (06/03/2022 9:22 PM POKER SUPERVISOR): Continue per Ophthalmology Dr. Garcia. Assessment & Plan (07/10/2021 10:01 PM POKER SUPERVISOR): Continue per Dr. Garcia ophthalmology Assessment & Plan (11/28/2020 1:02 PM CDT): Continue per Opthamology Assessment & Plan (07/11/2020 1:44 PM POKER SUPERVISOR): Continue per Ophthamology History of colon polyps 05/20/2020 Assessment & Plan (11/28/2020 1:02 PM CDT): colonscopy - [facility] 06/2018--->2021 Assessment & Plan (07/11/2020 1:45 PM POKER SUPERVISOR): Colonoscopy due 07/2021 OA (osteoarthritis) 05/20/2020 Assessment & Plan (11/28/2020 1:03 PM CDT): NSAID prn Assessment & Plan (07/11/2020 1:45 PM POKER SUPERVISOR): Continue with Nsaids prn Diverticulosis 05/20/2020 Resolved [...] 22 Assessment & Plan (06/21/2021 9:35 AM POKER SUPERVISOR): Weight/BMI is in healthy range. Continue healthy lifestyle to maintain. Annual physical exam 06/21/2021 023 Assessment & Plan (06/03/2022 9:23 PM POKER SUPERVISOR): Encouraged healthy lifestyle, good nutrition and exercise. Encouraged Calcium and Vitamin D and weight bearing exercise for bone health. Reviewed immunizations Reviewed age appropirate screenings. Assessment & Plan (07/10/2021 10:02 PM POKER SUPERVISOR): Encouraged healthy lifestyle, good nutrition and exercise. Encouraged Calcium and Vitamin D and weight bearing exercise for bone health. Reviewed immunizations Reviewed age appropirate screenings. Need for vaccination with 13 -polyvalent pneumococcal conjugate vaccine 06/21/2021 Assessment & Plan (07/10/2021 10:02 PM POKER SUPERVISOR): Thirteen updated in the office today Colon [...] convenience Assessment & Plan (07/10/2021 10:02 PM POKER SUPERVISOR): Refer back to Dr. santacruz for is colonoscopy Fatigue 11/28/2020 11/28/2022 Assessment & Plan (06/03/2022 9:23 PM POKER SUPERVISOR): Probably multifactorial. Check labs and followup to re-evaluate Assessment & Plan (07/10/2021 10:02 PM POKER SUPERVISOR): Probably multifactorial. Check labs and followup to [...] 11/29/19 Assessment & Plan (06/03/2022 9:22 PM POKER SUPERVISOR): Weight/BMI is in healthy range. Continue healthy lifestyle to maintain. Assessment & Plan (12/04/2021 11:41 PM CDT): Weight/BMI is in healthy range. Continue healthy lifestyle to maintain. Assessment & Plan (11/22/2020 10:49 AM CDT): Weight/BMI is in healthy range. Continue healthy lifestyle to maintain. BMI 27.0-27.9,adult 05/20/2020 11/23/19 Assessment & Plan (05/20/2020 10:19 AM POKER SUPERVISOR): Weight/BMI is in healthy range. Continue healthy lifestyle to maintain. Annual physical exam 05/20/2020 021 Assessment & Plan (07/11/2020 1:45 PM POKER SUPERVISOR): Encouraged healthy lifestyle, good nutrition and exercise. Encouraged Calcium and Vitamin D and weight bearing exercise for bone health. Reviewed immunizations Reviewed age appropirate screenings. Other fatigue 05/20/2020 12/09/2023 Assessment & Plan (07/15/2023 11:29 PM CDT): Probably multifactorial. Check labs and followup to re-evaluate Assessment & Plan (07/11/2020 1:45 PM POKER SUPERVISOR): Probably multifactorial. Check labs and followup to [...] 03/08/2020 Td, adsorbed 11/23/1993 ZOSTER Recombinant 11/24/2021,11/24/2020 Surgical History Surgery Date Site/Laterality Comments PANCREAS SURGERY 05/07/2016 - 05/06/2017 Dr. Quiñonez done at [facility] History Medical History Date Comments Hyperlipidemia Diabetes mellitus (HCC) Family History Medical History Relation Name Comments Diabetes Father Hypertension Father Colon cancer Mother Diabetes Mother Diabetes Sister Relation Name Status Comments Father Mother Sister Social History Tobacco Use Types Packs/Day Years [...] on file Legal Sex Male 12:01 PM POKER SUPERVISOR Gender Identity Not on file Sexual Orientation Not on file Obstetrics History Last Filed Vital Signs Vital Sign Reading Time Taken Comments Blood Pressure 130/82 06/04/2024 9:50 AM POKER SUPERVISOR Pulse 55 06/04/2024 9:50 AM POKER SUPERVISOR Temperature 36.7 C (98 F) 06/04/2024 9:50 AM POKER SUPERVISOR Respiratory Rate 16 05/24/2022 9:04 AM POKER SUPERVISOR Oxygen Saturation 99% 06/04/2024 9:50 AM POKER SUPERVISOR Inhaled Oxygen Concentration - - Weight 86.9 kg (191 lb 9.6 oz) 06/04/2024 9:50 A M POKER SUPERVISOR Height 175.3 cm (5' 9) 06/04/2024 9:50 AM POKER SUPERVISOR Body Mass Index 28.29 06/04/2024 9:50 AM POKER SUPERVISOR Plan of Treatment Health Maintenance Due Date Last Done Comments Hepatitis C Screening 1950 Foot Exam 1950 Hepatitis B Screening 10/08/1969 DTaP/Tdap/Td Vaccine (1 - Tdap) 11/24/1993 4 Covid-19 Vaccine (2023-2 5 season) 2024 04/23/2021, 07/19/2020, 06/28/2020 Colon Cancer Screening-Colonoscopy 07/21/2024 07/21/2021, 06/14/2018, 06/13/2018 Hemoglobin A1C 11/16/2024 05/19/2024, 11/04, 03/21/2023, Additional history exists Dilated Eye Exam 02/28/2025 02/29/2024, , 12/19/2022, Additional history exists Albumin Creatinine Ratio, Urine 05/19/2025 05/19/2024, 11/20/2023, 11/21/2022, Additional history exists Lipid Panel 05/19/2025 05/19/2024, 11/04, 11/21/2022, Additional history exists eGFR 05/19/2025 05/19/2024, 11/04, 11/21/2022, Additional history exists Depression Screening 06/04/2025 06/04/2024, 12/04/2023, 07/02/2023, Additional history exists Fall Risk Assessment 06/04/2025 06/04/2024, 12/04/2023, 07/02/2023, Additional history exists Well Visit 65+ 06/04/2025 06/04/2024, 11/06, 07/02/2023, Additional history exists Pneumococcal vaccine 65+ Completed 06/21/2021, 1106/2019 Zoster Vaccine Completed 11/24/2021, 11/24/2020 Influenza Vaccine Completed 02/11/2024, , 02/07/2022, Additional history exists Procedures Procedure Name Priority Date/Time Associated Diagnosis Comments COMPREHENSIVE METABOLIC PANEL Routine 05/19/2024 7:18 AM POKER SUPERVISOR Type 2 diabetes mellitus without complication, without long-term current use of insulin (HCC) HEMOGLOBIN A1C Routine 05/19/2024 7:18 AM POKER SUPERVISOR Type 2 diabetes mellitus without complication, without long-term current use of insulin (HCC) LIPID PANEL Routine 05/19/2024 7:18 AM POKER SUPERVISOR Type 2 diabetes mellitus without complication, without long-term current use of insulin (HCC) ALBUMIN CREATININE RATIO, URINE Routine 05/19/2024 7:18 AM POKER SUPERVISOR Type 2 diabetes mellitus without complication, without long-term current use of insulin (HCC) HM DIABETES EYE EXAM Routine 02/29/2024 11:27 AM CDT COLONOSCOPY Routine 07/21/2021 from Last 3 Months or Most Recently Relevant to Health Maintenance Results * Albumin Creatinine Ratio, Urine (05/19/2024 7:18 AM POKER SUPERVISOR) Creatinine, ur 93 20 - 320 mg/dL [...] a diagnostic category. Urine 05/19/2024 7:18 AM POKER SUPERVISOR 05/19/2024 7:20 AM POKER SUPERVISOR Narrative [facility] - 05/20/2024 5:42 AM POKER SUPERVISOR FASTING:YES FASTING: YES Tanisha ANDRADE LAB URINE ORDERABLES Final Result [facility] [address] [facility] [place], [place] [address] * (ABNORMAL) Hemoglobin A1c (05/19/2024 7:18 AM POKER SUPERVISOR) Hgb A1C 6.0(H) <5.7 % of total [...] diabetes for children. Blood 05/19/2024 7:18 AM POKER SUPERVISOR 05/19/2024 7:20 AM POKER SUPERVISOR Narrative [facility] - 05/20/2024 5:42 AM POKER SUPERVISOR FASTING:YES FASTING: YES Tanisha ANDRADE LAB BLOOD ORDERABLES Final Result [facility] [address] [place] [address] * Lipid panel (05/19/2024 7:18 AM POKER SUPERVISOR) [facility] Cholesterol 165 <200 mg/dL NavidogLoal Guillen HDL 50 > OR = 40 mg/dL [facility]idogLola Guillen Triglycerides 103 <150 mg/dL Padmini ImpactGamesLola Guillen LDL 95 mg/dL (calc) NavidogLola Guillen Comment: Reference range: <100 Desirable range <100 mg/dL for primary prevention; <70 mg/dL for patients with CHD or diabetic patients with > or = 2 CHD risk factors. LDL-C is now calculated using the Stuart-Adrian calculation, which is a validated novel method providing better accuracy than the Friedewald equation in the estimation of LDL-C. Stuart VALDES et al. HERB. 2013;310(19): 3217-6750 (http://education.Mediaspectrum.Huoli/faq/VHT968) Chol/HDL ratio 3.3 <5.0 (calc) Padmini [facility] Guillen Non-HDL, (LDL+VLDL) 115 <130 mg/dL (calc) FlippsRosario Guillen Comment: For patients with diabetes plus 1 major ASCVD risk factor, treating to a non-HDL-C goal of <100 mg/dL (LDL-C of <70 mg/dL) is considered a therapeutic option. Blood 05/19/2024 7:18 AM POKER SUPERVISOR 05/19/2024 7:20 AM POKER SUPERVISOR Narrative [facility] - 05/20/2024 5:42 AM POKER SUPERVISOR FASTING:YES FASTING: YES Tanisha ANDRADE LAB BLOOD ORDERABLES Final Result PADMINI Guillen [address] [place] [address] * Comprehensive metabolic panel (05/19/2024 7:18 AM POKER SUPERVISOR) [facility] Glucose 87 65 - 99 mg/dL Padmini Beaulieu-Lola Guillen Comment: Fasting reference interval BUN 16 7 - 25 mg/dL Padmini Beaulieu-Lola Guillen Creatinine 0.88 0.70 - 1.28 mg/dL [facility] Guillen eGFR 91 > OR = 60 mL/min/1.7 3m2 [facility] BUN/creat ratio SEE NOTE: 6 (calc) [facility] Gu[facility] Comment: Not Reported: BUN and Creatinine are within reference range. Sodium 140 135 - 146 mmol/L [facility] Potassium, pl 4.6 3.5 - 5.3 mmol/L [facility] Chloride 105 98 - 110 mmol/L [facility] CO2 28 20 - 32 mmol/L [facility] Calcium 9.4 8.6 - 10.3 mg/dL [facility] Protein, sr 7.2 6.1 - 8.1 g/dL [facility] Albumin 4.6 3.6 - 5.1 g/dL [facility] GLOBULIN 2.6 1.9 - 3.7 g/dL (calc) [facility] Alb/glob ratio 1.8 1.0 - 2.5 (calc) [facility] Bilirubin, total 0.5 0.2 - 1.2 mg/dL [facility] Alk phos 48 35 - 144 U/L [facility] AST 25 10 - 35 U/L [facility] ALT (SGPT) 14 9 - 46 U/L [facility] Blood 05/19/2024 7:18 AM POKER SUPERVISOR 05/19/2024 7:20 AM POKER SUPERVISOR Narrative [facility] - 05/20/2024 5:42 AM POKER SUPERVISOR FASTING:YES FASTING: YES Tanisha ANDRADE LAB BLOOD ORDERABLES Final Result [email or web address] [address] [place] [address] * DIABETES EYE EXAM (02/29/2024 11:27 AM CDT) SCRIBED DIABETIC DILATED EYE EXAM Normal Historical Provider HEALTH MAINTENANCE Edited Result - Final * Colonoscopy (07/21/2021) Anatomical Region Laterality Modality Other Historical Provider ENDOSCOPY PROCEDURES Michelle l Result from Last 3 Months or Most Recently Relevant to Health Maintenance Insurance [facility] [address] [facility] Care Teams Finance Officer Relationship Specialty Start Date End Date Tanisha Isaac PA [address] [facility] [address] [place] [address] PCP - General Internal Medicine 04/06/20
[2024-10-21 07:53] VITALS: BP 138/67; PULSE 57; RESP 18; TEMP 36.6; O2SAT 99
[2024-10-21] MEDS: LACTATED RINGERS 1,000 ML 150 ML IV CONT (07:59)
--- NOTE | 2024-10-21 08:08 | P.PNAN_ITS ---
Anes - Initial Pre Proc Eval Procedure: Operation Date: 10/21/24 09:00 Proposed Procedures p Screening Colonoscopy - Janes Reddy MD Date/Time: 10/21/24 08:08 Surgeon: Janes Reddy MD Pre Op Diagnosis: Encounter for screening for malignant neoplasm of Patient Data Age: 74 Gender: M Height: 1.83 m Weight: 83.2 kg Last Vital Signs Temp 36.6 C 10/21/24 07:53 Pulse 57 L 10/21/24 07:53 Resp 18 10/21/24 07:53 BP 138/67 10/21/24 07:53 Pulse Ox 99 10/21/24 07:53 O2 Del Method Room Air 10/21/24 07:53 Allergies Allergy/AdvReac Type Severity Reaction Status Date / Time No Known Allergies Allergy Verified 10/21/24 07:51 Home Medications ?Medication ?Instructions ?Recorded ?Confirmed ?Type atorvastatin 10 mg tablet 10 mg PO HS 07/08/21 10/21/24 History finasteride 5 mg tablet 5 mg PO DAILY 07/08/21 10/21/24 History lisinopril 2.5 mg tablet 2.5 mg PO DAILY 07/08/21 10/21/24 History mecobalamin (vitamin B12) 5,000 5,000 mcg PO DAILY 10/06/24 10/21/24 History mcg chewable tablet multivitamin 1 tablet PO DAILY 10/06/24 10/21/24 History Patient hx anesthesia problems: none Family hx anesthesia problems: none Results Review: All pre-operative results and documents have been reviewed as part of the pre- operative evaluation. COUNT INCLUDES THE [facility] Past Medical History Medical History Smoker Diabetes HTN (hypertension) Hyperlipidemia Surgical History Surgical History H/O colonoscopy Social History Social History Smoking packs per day: 0.5 Smoking cigarettes per day: 10.0 Years smoked: 10 Smoking pack-years: 5.00 Smoking status: Former smoker Tobacco type: cigarettes Alcohol intake: never Substance use: never Substance use type: does not use Living arrangements: alone Spiritual care concerns: No Anes - Eval Final PreProcedure Day of Procedure 10/21/24 08:08 Patient weight: normal Heart: regular rate and rhythm Lungs: decreased breath sounds Airway: Mallampati scale class II Neurological: alert and oriented Last oral intake: >/= 8 hours ASA classification: III Emergent: no Anesthetic plan: proceed Anesthesia type and monitoring: general GIVS and standard monitoring Results Review: All pre-operative results and documents have been reviewed as part of the pre- operative evaluation. Informed Consent: The patient's anesthetic plan and its attendant risks and benefits were d iscussed with the patient/family/POA. Questions were solicited and answers provided to the satisfaction of the patient/family/POA.
--- NOTE | 2024-10-21 08:46 | PM.HPGS ---
History of Present Illness History of Present Illness Consent: Risks, benefits, and alternatives have been discussed and questions answered. Patient agrees to proceed with procedure. Chief complaint: Encounter for screening for malignant neoplasm of Narrative: Sharan De Luna is a 74 year old male with h/o colon polyp and mother had colon cancer, last colonoscopy 2021 Review of Systems Review of Systems: All systems reviewed & are unremarkable except as noted in HPI and below PMFSH Past Medical History Medical History Smoker Diabetes HTN (hypertension) Hyperlipidemia Surgical History Surgical History H/O colonoscopy Social History Social History Smoking packs per day: 0.5 Smoking cigarettes per day: 10.0 Years smoked: 10 Smoking pack-years: 5.00 Smoking status: Former smoker Tobacco type: cigarettes Alcohol intake: never Substance use: never Substance use type: does not use Living arrangements: alone Spiritual care concerns: No Meds Home Medications and Allergies Home Medications ?Medication ?Instructions ?Recorded ?Confirmed ?Type atorvastatin 10 mg tablet 10 mg PO HS 07/08/21 10/21/24 History finasteride 5 mg tablet 5 mg PO DAILY 07/08/21 10/21/24 History lisinopril 2.5 mg tablet 2.5 mg PO DAILY 07/08/21 10/21/24 History mecobalamin (vitamin B12) 5,000 5,000 mcg PO DAILY 10/06/24 10/21/24 History mcg chewable tablet multivitamin 1 tablet PO DAILY 10/06/24 10/21/24 History Allergies Allergy/AdvReac Type Severity Reaction Status Date / Time No Known Allergies Allergy Verified 10/21/24 07:51 Vital Signs Vital Signs - 24 hr 10/21/24 07:53 Temperature 98 F Pulse Rate 57 L Respiratory Rate 18 Blood Pressure 138/67 Pulse Oximetry 99 Oxygen Delivery Room Air Exam Const: General: comfortable and no acute distress HENMT: Face/Nose/Sinus: Normal nares present Eyes: General: appearance normal, both eyes and all related structures Neck: Neck: no JVD Resp: Auscultation: clear to auscultation bilaterally Cardio: Rate: regular rate Rhythm: regular rhythm GI: Inspection: non-distended GI Palp: Yes Soft to palpation Skin: General skin exam: normal color Neuro: Speech: normal speech Extrem: General: normal to inspection Psych: Mental Status: mental status grossly normal Assessment and Plan Assessment and plan (1) Family history of colon cancer in mother: Code(s): Z80.0 - Family history of malignant neoplasm of digestive organs Status: Acute Assessment and Plan: colonoscopy (2) History of colon polyps: Code(s): Z86.010 - Personal history of colon polyps Status: Acute
--- NOTE | 2024-10-21 09:03 | S_PTH ---
PATIENT: Sharan De Luna LOC: [facility]#:[id number] AGE/SX: 74/M ROOM: RE10/21/[address]: Janes Reddy MD : 1950 BED: DIS: 10/21/2024 SPEC #: [id number] RECD: 10/21/24 10:17 STATUS: JORDANA REJudy #: [id number] KATHY: 10/21/24 09:[address]: Janes Reddy DEPT: [facility] Surgical RECD BY: Ramana Watkins ENTERED: 10/21/24 10:18 SP TYPE: Surgical OTHR DR: Tanisha Isaac, PA Tissues: A - Colon Polypectomy B - Colon Polypectomy Procedures: Hematoxylin and Eosin Stain Gross and Microscopic Level 4
[2024-10-21 09:05] VITALS: BP 94/50; PULSE 56; RESP 18; O2SAT 99
--- NOTE | 2024-10-21 09:05 | SUR.OPER ---
[address] Antonio george.
[2024-10-21 09:15] VITALS: BP 100/54; PULSE 53; RESP 12; O2SAT 100
[2024-10-21 09:25] VITALS: BP 111/63; PULSE 50; RESP 14; O2SAT 100
== END 2024-10-21 09:38 | disposition home or self-care (01) ==
PROVIDERS: PCP Physician Assistant; Referring Provider Physician Assistant; Visit Provider Internal Medicine Gastroenterology
PROC: 0DJD8ZZ Inspection of Lower Intestinal Tract, Via Natural or Artificial Opening Endoscopic (ICD-10-PCS; CPT 45378; principal; 2024-10-21 09:00)
DX: Z12.11 Encounter for screening for malignant neoplasm of colon (principal); D12.2 Benign neoplasm of ascending colon; K63.5 Polyp of colon; K57.30 Diverticulosis of large intestine without perforation or abscess without bleeding; K64.8 Other hemorrhoids; Z80.0 Family history of malignant neoplasm of digestive organs; Z87.891 Personal history of nicotine dependence
CPT/HCPCS: 45385; 88305; J7120